=== PATIENT | male | born 1965 | race Caucasian/White ===

== ENCOUNTER 2018-07-14 09:39 | Outpatient (CLI) | payer BC ==
--- NOTE | 2018-07-14 11:59 | CT ---
CT CHEST WITHOUT CONTRAST PULMONARY LUNG SCAN: HISTORY: Personal history of nicotine dependence. COMPARISON: None. FINDINGS: Lung screen specific (lung-RADS): Negative. No suspicious pulmonary nodules. Potentially significant incidentals (Lung-RADS category S): Negative. No incidental findings requir ing urgent additional evaluation. Pulmonary incidentals: There is moderate central lobular emphysema with superimposed respiratory bro nchiolitis. No pneumothorax. No effusion. Other incidentals: No mediastinal adenopathy. No pericardial effusion. Limited evaluation of the u pper abdomen appears unremarkable. The sternum and manubrium are intact. No thoracic spine compression fracture. No osseous abnormalit y. IMPRESSION: 1. Lung-RADS category 1-Negative. Recommend follow-up screening CT in one year. 2. Lung-RADS category S-Negative. No new or unknown incidentally noted findings requiring urgent ad ditional evaluation. 3. Moderate respiratory bronchiolitis with background moderate to central lobular emphysema. POS: [facility]
== END 2018-07-14 09:40 | disposition home or self-care (01) ==
LOC: CT 09:39
PROVIDERS: ATTEND Internal Medicine
DX: Z87.891 Personal history of nicotine dependence (principal); J21.9 Acute bronchiolitis, unspecified; J43.2 Centrilobular emphysema
CPT/HCPCS: G0297